=== PATIENT | female | born 1990 | race Caucasian/White ===

== ENCOUNTER → 2017-02-08 | Outpatient (CLI) | payer MEDICAID ==
[~2017-02-08] MED LIST: DCS100C PO; FERR-57 PO; IBP600T1 PO; IRON; NITR-65 PO; NITR100C3 PO; ONDAN4ODT PO; OXYC-12 PO; PREN1TAB39 PO; [UNRECOGNIZED DRUG - REMARK]
--- NOTE | 2017-02-08 12:57 | Diagnostic Imaging Report ---
INDICATION: Wrestling two weeks ago with acute sternal pain. FINDINGS: Three views show good alignment of the sternum. Sternomanubrial joint appears normal. No fractures are demonstrated. IMPRESSION: Normal sternum. Dictated by: Dictated on workstation # [id number]
== END ==
LOC: LAB 11:27
PROVIDERS: ATTEND Family Medicine
DX: R07.2 Precordial pain (principal)
CPT/HCPCS: 71120